=== PATIENT | male | born 1965 | race Hispanic/Latino ===

== ENCOUNTER 2018-10-16 16:29 | Emergency (ER) | payer SELFPAY | END 2018-10-16 17:40 | disposition home or self-care (01) | LOC: ERS 16:29 | DX: K04.7 Periapical abscess without sinus (principal) | CPT/HCPCS: 99283 ==

== ENCOUNTER 2019-02-28 07:08 | Inpatient (IN) | payer OTHER, SELFPAY ==
[2019-02-28] MEDS ORDERED: Ondansetron PF 4 MG/2 ML Vial ONE ×2 (07:40→11:51)
[2019-02-28] MEDS ORDERED: Morphine 4 MG/ML VIAL ONE ×2 (07:40→08:25)
[2019-02-28 07:47] LABS: #Eosinphils 0.1 thou/uL (0.0-0.7); #Monocytes 1.3 thou/uL (0.11-0.59); #Neutrophils 11.7 thou/uL (1.40-6.50); %Basophils 0.3 % (0.0-1.0); %Eosinophils 0.4 % (0.0-10.0); %Lymphocytes 6.8 % (21.0-51.0); %Monocytes 9.3 % (0.0-10.0); %Neutrophils 83.3 % (42.0-75.0); Mean Corpuscular HGB CONC 34.7 g/dL (32.0-36.0); Mean Corpuscular Hemoglobin 33.2 pg (27.0-31.0); Mean Corpuscular Volume 95.5 fL (78.0-98.0); Mean Platelet Volume 7.3 fL (7.4-10.4); Platelet Count 164 thou/uL (130-400); RBC Distribution Width 11.6 % (11.5-14.5); Red Blood Cell (RBC) Count 5.72 mill/uL (4.70-6.10); White Blood Cell (WBC) Count 14.1 thou/uL (4.8-10.8)
[2019-02-28 07:56] LABS: INR-International Normal Ratio 1.1; PTT 32.4 SEC (22.9-36.1); Prothrombin Time 14.3 SEC (12.0-14.7)
[2019-02-28 08:09] LABS: ALT (SGPT) 54 U/L (8-55); AST (SGOT) 23 U/L (5-34); Albumin 4.5 g/dL (3.5-5.0); Alkaline Phosphatase 86 U/L (40-150); Anion Gap 17 mmol/L (10-20); BUN (Urea Nitrogen) 15 mg/dL (8.4-25.7); Bilirubin, Total 3.5 mg/dL (0.2-1.2); Calc. Creatinine Clearance 0 mL/min (70-130); Calcium 9.7 mg/dL (7.8-10.44); Carbon Dioxide 23 mmol/L (22-29); Chloride 88 mmol/L (98-107); Estimated GFR-MDRD 56; Globulin 3.7 g/dL (2.4-3.5); Glucose 197 mg/dL (70-105); Lipase 33 U/L (8-78); Potassium 4.2 mmol/L (3.5-5.1); Protein, Total 8.2 g/dL (6.0-8.3); Sodium 124 mmol/L (136-145)
--- NOTE | 2019-02-28 08:20 | CT ---
CT ABDOMEN AND PELVIS WITH IV CONTRAST: Date: 02/28/19 PROVIDED CLINICAL HISTORY: Abdominal pain. FINDINGS: Visualized lung bases are free of significant opacity. The liver, spleen, pancreas, kidneys, and adrenal glands demonstrate an unremarkable CT appearance. There is a dilated appendix with mucosal enhancement and appendicolith with advanced surrounding infl ammatory fat stranding compatible with changes of acute appendicitis. There is no evidence for a foca l fluid collection or extraluminal gas. There is a right inguinal hernia containing predominantly fat. A small, circumscribed fluid density s tructure may reflect fluid extension through a patent processus vaginalis. Small, fat-containing left inguinal hernia is also seen. There is a nonspecific, somewhat thickened appearance to the urinary b ladder wall, incompletely distended. There is no evidence for bowel obstruction, free intraperitoneal fluid, or free intraperitoneal air. The regional major vascular structures appear unremarkable with the exception of scattered vascular c alcification. The osseous structures demonstrate no concerning lytic or blastic lesions. IMPRESSION: 1. Findings compatible with acute appendicitis. The degree of fat stranding suggests the possibility of a ruptured appendicitis. 2. Right greater than left inguinal hernias as above. 3. Apparent mural thickening involving the urinary bladder. Correlate with concerns for cystitis. 4. Other findings as above. POS: OFF
[2019-02-28] MEDS ORDERED: Piperacillin/Tazobactam 4.5 GM VIAL ONE (08:25)
[2019-02-28 08:38] LABS: Clarity Hazy (Clear)
[2019-02-28 08:39] LABS: Bilirubin Unable to Interpret (Negative); Blood, Urine Unable to Interpret (Negative); Glucose, Urine (Dipstick) Unable to Interpret mg/dL (Negative); Leukocyte Unable to Interpret Leu/uL (Negative); Nitrite Unable to Interpret (Negative); Urobilinogen UNABLE TO INTERPRET mg/dL (Less than 2)
[2019-02-28 08:47] LABS: Protein, Urine (Dipstick) Trace mg/dL (Neg-Trace)
[2019-02-28 08:48] LABS: Squamous Epithelial 0-3 HPF (0-3); WBC/HPF 0-3 HPF (0-3)
[2019-02-28 08:49] LABS: Bacteria/HPF None Seen HPF (None Seen)
[2019-02-28] MEDS ORDERED: Fentanyl 100 MCG/2 ML VIAL ONE ×3 (09:34→19:33)
[2019-02-28] MEDS ORDERED: Ketorolac Tromethamine 30 MG/ML VIAL ONE (10:03)
--- NOTE | 2019-02-28 10:21 | HP ---
HISTORY OF PRESENT ILLNESS: Leonides Hensley is a 53-year-old male patient, who I have known since I have been taking care of his , who has recently undergone a colon resection. The patient presents with 2 days of right lower quadrant pain, anorexia, nausea without vomiting. He had fever today up to 101 degrees. He is seen in the emergency room, underwent a CAT scan demonstrating findings consistent with appendicitis. His white count is elevated. He is hemoconcentrated. ALLERGIES: NONE. TOBACCO: None. ALCOHOL: 6 packs a day. MEDICATIONS: At home, none. PAST SURGICAL HISTORY: Noncontributory. PAST MEDICAL HISTORY: Noncontributory. REVIEW OF SYSTEMS: Ten-point noncontributory. PHYSICAL EXAMINATION: VITAL SIGNS: 100.4 degrees. HEAD, EARS, EYES, NOSE, AND THROAT: Unremarkable. LUNGS: Clear to auscultation. CARDIAC: Regular rate and rhythm without murmur or gallop. ABDOMEN: Soft, tenderness in his right lower quadrant with guarding and rebound. Positive Rovsing sign. EXTREMITIES: Unremarkable. LABORATORY DATA: White count 14, hemoglobin 19. Sodium 124, potassium 4.2, BUN 15, creatinine 1.33. ASSESSMENT/PLAN: 1. Acute appendicitis. Recommend laparoscopic video appendectomy. He is likely need to be admitted postoperative for intravenous antibiotics with his preoperative fever. He understands risks of infection, bleeding, visceral injury, possible open procedure, and consents. 2. Alcohol abuse. Job ID: [id number]
[2019-02-28] MEDS ORDERED: Lidocaine 1% PF 5 ML VIAL ONE (11:51)
[2019-02-28] MEDS ORDERED: PROPOFOL 200 MG/20 ML VIAL ONE (11:51)
[2019-02-28] MEDS ORDERED: PHENYLEPHRINE-NS 100 MCG/ML 10 ML SYRINGE ONE (11:51)
[2019-02-28] MEDS ORDERED: Rocuronium Bromide 10 MG/ML (10ML VIAL) ONE (11:51)
[2019-02-28] MEDS ORDERED: ISOVUE-370 76%-LOCM 1 ML ONE (12:07)
[2019-02-28] MEDS ORDERED: Bupivacaine/Epinephrine 0.25% 30 ML VIAL ONE (12:15)
[2019-02-28] MEDS ORDERED: Fentanyl 250 MCG/5 ML VIAL ONE (12:31)
[2019-02-28] MEDS ORDERED: hydrALAZINE 20 MG/ML VIAL SLOW IVP PRN (14:57)
[2019-02-28] MEDS ORDERED: Lorazepam 2 MG/ML VIAL SLOW IVP PRN (14:57)
[2019-02-28] MEDS ORDERED: Ondansetron PF 4 MG/2 ML Vial IVP PRN (14:57)
[2019-02-28] MEDS ORDERED: Ondansetron ODT 4 MG TAB PO PRN (14:57)
[2019-02-28] MEDS ORDERED: Sodium Chloride 0.9% 1,000 ML IV SCH (18:30)
[2019-02-28] MEDS ORDERED: Morphine 2 MG/ML SYRINGE ONE (20:56)
[2019-02-28] MEDS: Piperacillin/Tazobactam 4.5 GM in Sodium Chloride 0.9% 100 ML IVPB SCH ×2 (21:52→23:45)
[2019-02-28] MEDS: Enoxaparin Sodium 40 MG/0.4 ML SYRINGE SC SCH (21:56)
[2019-02-28] MEDS: Morphine 4 MG/ML VIAL SLOW IVP PRN ×2 (21:57→23:45)
[2019-02-28] MEDS: Sodium Chloride 0.9% 1,000 ML IV SCH (21:58)
--- NOTE | 2019-02-28 22:04 | OP ---
DATE OF PROCEDURE: 02/28/2019 PREOPERATIVE DIAGNOSIS: Acute appendicitis. POSTOPERATIVE DIAGNOSES: Acute appendicitis with peritonitis, gangrenous appendix. PROCEDURES PERFORMED: Laparoscopic video appendectomy, #19 gold GALA drain, abdominal washout, 5 L of fluid. ANESTHESIA: General. DESCRIPTION OF PROCEDURE: The patient was taken to the operating room, where under general anesthesia, abdomen was clipped of hair, prepared with ChloraPrep and draped in routine fashion. Feliz catheter placed at the beginning of the incision, and removed at the end. Local anesthetic, 0.5% Marcaine with epinephrine was infiltrated in the skin and subcutaneous tissue about each port site. Infraumbilical incision was made. Pneumoperitoneum to 15 mmHg was obtained with a Veress needle and replaced with a 5 port and laparoscope inserted. A suprapubic incision was made and a 12 port placed. Bilateral subcostal incision was made and a 5 port placed. There was purulent fluid in the pelvis and right gutter. The appendix was acutely inflamed, gangrenous. It was dissected free. It was walled off with purulent material around it. The appendix was dissected free using the LigaSure to mobilize the mesoappendix. Stump of the appendix was identified and stapled. Appendectomy performed with a DIAN blue load stapler. Stapled cecal stump was hemostatic and secured. Appendix was placed in the Endobag and removed, submitted to Pathology. Good hemostasis noted. The total bag of irrigation fluid, 5 L irrigated, irrigant evacuated. Hemostasis noted. Suprapubic fascia had been approximated with 0 Vicryl suture. Infraumbilical access port was bleeding. Thus, a [id number] suture of 0 Vicryl placed with a GraNee needle. A 19 gold GALA drain placed in the right gutter and pelvis, secured with 3-0 nylon suture. OpSite and Mastisol applied. Irrigant and pneumoperitoneum evacuated. Hemostasis noted. All skin incisions were approximated with subdural 4-0 Monocryl and [place] glue applied. The patient tolerated the procedure well. Job ID: [id number]
[2019-03-01 00:30] VITALS: BMI 31.5
[2019-03-01] MEDS: Piperacillin/Tazobactam 4.5 GM in Sodium Chloride 0.9% 100 ML IVPB SCH ×4 (05:49→23:25)
[2019-03-01] MEDS: Sodium Chloride 0.9% 1,000 ML IV SCH ×4 (05:49→19:26)
[2019-03-01] MEDS: Morphine 2 MG/ML SYRINGE SLOW IVP PRN ×2 (05:51→12:07)
[2019-03-01 06:28] LABS: Anion Gap 10 mmol/L (10-20); BUN (Urea Nitrogen) 14 mg/dL (8.4-25.7); Calc. Creatinine Clearance 102 mL/min (70-130); Carbon Dioxide 25 mmol/L (22-29); Chloride 101 mmol/L (98-107); Estimated GFR-MDRD 65; Glucose 113 mg/dL (70-105); Potassium 4.4 mmol/L (3.5-5.1); Sodium 132 mmol/L (136-145)
[2019-03-01 06:42] LABS: #Lymphocytes 0.8 thou/uL (1.20-3.40); #Monocytes 0.6 thou/uL (0.11-0.59); #Neutrophils 6.1 thou/uL (1.40-6.50); %Basophils 0.2 % (0.0-1.0); %Eosinophils 0.6 % (0.0-10.0); %Monocytes 7.8 % (0.0-10.0); %Neutrophils 80.3 % (42.0-75.0); Mean Corpuscular HGB CONC 34.7 g/dL (32.0-36.0); Mean Corpuscular Hemoglobin 34.1 pg (27.0-31.0); Mean Corpuscular Volume 98.3 fL (78.0-98.0); RBC Distribution Width 11.4 % (11.5-14.5); Red Blood Cell (RBC) Count 4.12 mill/uL (4.70-6.10); White Blood Cell (WBC) Count 7.5 thou/uL (4.8-10.8)
[2019-03-01 07:03] LABS: Mean Platelet Volume 6.9 fL (7.4-10.4); Platelet Count 119 thou/uL (130-400); Platelet Morphology Comment Appears Decreased
[2019-03-01] MEDS: Pantoprazole 40 MG VIAL IVP SCH (07:56)
[2019-03-01] MEDS: Morphine 4 MG/ML VIAL SLOW IVP PRN ×2 (17:48→21:32)
--- NOTE | 2019-03-01 18:15 | PRG ---
DATE OF SERVICE: 03/01/2019 SUBJECTIVE: Leonides Hensley is doing well today. He is not having nausea or vomiting. He is tolerating his liquids and happy with that. OBJECTIVE: VITAL SIGNS: Temperature 98 degrees, heart rate 90, blood pressure 135/76. LUNGS: Clear to auscultation. CARDIAC: Regular rate and rhythm without murmur or gallop. ABDOMEN: Slightly protuberant, distended, tympanitic. Decreased bowel sounds. Well-healed surgical wounds. EXTREMITIES: Unremarkable. LABORATORY DATA: Govind-Nazario drain has serosanguineous output. This morning, his white count is 7, hemoglobin 14. Basic metabolic profile normal. Sodium up to 132. ASSESSMENT AND PLAN: 1. Ruptured appendicitis with peritonitis and ileus. Continue liquids slowly. Do not advance diet at this time. Await better GI function. 2. Alcoholism. Begin Serax. 3. Continue Govind-Nazario drain. Job ID: [id number]
[2019-03-01] MEDS: Enoxaparin Sodium 40 MG/0.4 ML SYRINGE SC SCH (21:31)
[2019-03-01] MEDS: Oxazepam 10 MG CAP PO SCH (21:31)
[2019-03-02] MEDS: Morphine 4 MG/ML VIAL SLOW IVP PRN ×2 (02:32→06:09)
[2019-03-02] MEDS: Sodium Chloride 0.9% 1,000 ML IV SCH ×3 (02:35→17:26)
[2019-03-02 05:37] LABS: #Eosinphils 0.2 thou/uL (0.0-0.7); #Lymphocytes 0.6 thou/uL (1.20-3.40); #Monocytes 0.7 thou/uL (0.11-0.59); #Neutrophils 6.5 thou/uL (1.40-6.50); %Basophils 0.2 % (0.0-1.0); %Eosinophils 2.6 % (0.0-10.0); %Lymphocytes 7.5 % (21.0-51.0); %Monocytes 8.7 % (0.0-10.0); %Neutrophils 81.1 % (42.0-75.0); Hemoglobin 13.1 g/dL (14.0-18.0); Mean Corpuscular HGB CONC 33.5 g/dL (32.0-36.0); Mean Corpuscular Hemoglobin 32.9 pg (27.0-31.0); Mean Corpuscular Volume 98.2 fL (78.0-98.0); Mean Platelet Volume 7.2 fL (7.4-10.4); Platelet Count 136 thou/uL (130-400); RBC Distribution Width 11.1 % (11.5-14.5); Red Blood Cell (RBC) Count 3.98 mill/uL (4.70-6.10)
[2019-03-02 05:58] LABS: Anion Gap 10 mmol/L (10-20); BUN (Urea Nitrogen) 12 mg/dL (8.4-25.7); Calc. Creatinine Clearance 125 mL/min (70-130); Calcium 8.4 mg/dL (7.8-10.44); Carbon Dioxide 24 mmol/L (22-29); Chloride 101 mmol/L (98-107); Estimated GFR-MDRD 83; Glucose 113 mg/dL (70-105); Potassium 3.9 mmol/L (3.5-5.1); Sodium 131 mmol/L (136-145)
[2019-03-02] MEDS: Piperacillin/Tazobactam 4.5 GM in Sodium Chloride 0.9% 100 ML IVPB SCH ×4 (06:08→23:34)
[2019-03-02] MEDS: Oxazepam 10 MG CAP PO SCH ×3 (10:15→21:00)
[2019-03-02] MEDS: Pantoprazole 40 MG VIAL IVP SCH (10:16)
[2019-03-02] MEDS: Morphine 2 MG/ML SYRINGE SLOW IVP PRN ×2 (10:28→16:00)
[2019-03-02] MEDS ORDERED: Ibuprofen 600 MG TAB PO PRN (16:24)
[2019-03-02] MEDS ORDERED: traMADol HCl 50 MG TAB PO PRN ×2 (16:24)
--- NOTE | 2019-03-02 16:44 | PRG ---
DATE OF SERVICE: 03/02/2019 SUBJECTIVE: Mr. Lenoides Hensley is doing well today. He has not had any nausea or vomiting. He has passed some flatus, but no stools. His abdomen is still bloated and distended. He is tolerating liquids, taking sparingly. OBJECTIVE: VITAL SIGNS: Temperature 99.7 degrees, heart rate 85, and blood pressure 138/78. LUNGS: Clear to auscultation. No wheezing. CARDIAC: Regular rate and rhythm. ABDOMEN: Soft, distended, tympanitic. Laparoscopic wounds are well healed. Drainage is serosanguineous, 60 mL in the last 24 hours. LABORATORY DATA: White count is 8 and hemoglobin 13. Basic metabolic profile is normal. Sodium 131. ASSESSMENT AND PLAN: Perforated appendicitis, gangrenous with peritonitis. He still has resolving ileus. He has a few bowel sounds. He is passing flatus. He has not had any nausea or vomiting. He is happy with his clear liquids and we will leave him there until his abdomen decompresses and tympany improves. We hopefully can advance his diet in the morning. Dr. Niño is covering for the next few days. We would plan on him going home with Augmentin for 7 days. He is on Serax for alcohol withdrawal precautions. We will start multivitamins and thiamine daily. Job ID: [id number]
[2019-03-02] MEDS ORDERED: Thiamine HCl 200 MG/2 ML VIAL SLOW IVP SCH (17:00)
[2019-03-02] MEDS: Acetaminophen 500 MG TAB PO PRN (21:00)
[2019-03-02] MEDS: Enoxaparin Sodium 40 MG/0.4 ML SYRINGE SC SCH (21:00)
[2019-03-03] MEDS: Piperacillin/Tazobactam 4.5 GM in Sodium Chloride 0.9% 100 ML IVPB SCH ×2 (05:39→12:18)
[2019-03-03] MEDS: Acetaminophen 500 MG TAB PO PRN ×2 (05:39→11:12)
[2019-03-03 08:04] VITALS: BP 136/79; TEMP 98.3
[2019-03-03] MEDS ORDERED: Polyethylene Glycol 3350 17 GM Packet PO SCH (09:00)
[2019-03-03] MEDS ORDERED: Multivit, Chewable SF 1 TAB PO SCH (09:00)
[2019-03-03] MEDS: Pantoprazole 40 MG VIAL IVP SCH (10:01)
[2019-03-03] MEDS: Oxazepam 10 MG CAP PO SCH (10:14)
--- NOTE | 2019-03-03 12:14 | PQF ---
SUSANNAH GUERRA RICHARD D MD [id number] [facility] A- [id number] CLINICAL DOCUMENTATION IMPROVEMENT CLARIFICATION FORM: ICD-10 Updated PLEASE DO AN ADDENDUM TO THE PROGRESS NOTE WITH ANY DOCUMENTATION UPDATES OR ADDITIONS AND CARRY THROUGH TO DC SUMMARY. THANK YOU. DATE: 03-02-19 ATTN: DR. PEDRO LUIS SHANKS Please exercise your independent, professional judgment in responding to the clarification form. Clinical indicators are provided on the bottom of this form for your review Please check appropriate box(s): [ ] Acute Renal Failure (ARF) / Acute Kidney Injury (JENNIFER) [ ] Insignificant Lab Values [ ] Other diagnosis [ ] Unable to determine In addition, please specify: Present on Admission (POA): [ ] Yes [ ] No [ ] Unable to determine National Kidney Foundation Guidelines for CKD Staging Stage I Kidney damage with normal or increased GFR GFR > 90 Stage II Kidney damage with mildly decreased GFR GFR 60-89 Stage III Kidney damage with moderately decreased GFR GFR 30-59 Stage IV Kidney damage with severely decreased GFR GFR 16-29 Stage V Kidney failure GFR <15 ESRD End Stage Renal Disease On dialysis Acute Renal Failure/Acute Kidney Failure defined as: Increases in SCr by (>) 0.3 mg/dl within 48 hours OR- Increases in SCr by (>) 1.5 times baseline, known or presumed to have occurred within the prior 7 days OR- Urine volume < 0.5 ml/kg/hour for 6 hours (KDIGO supplement 2012 for RIFLE/ELHAM criteria) For continuity of documentation, please document condition throughout progress notes and discharge summary. Thank You. CLINICAL INDICATORS - SIGNS / SYMPTOMS / LABS: GFR: 02-28-19: 56 03-01-19: 65 03-02-19: 83 CREATININE: 02-28-19: 1.33 03-01-19: 1.16 03-02-19: 0.94 BUN: 02-28-19: 15 03-01-19: 14 03-02-19: 12 H&P: 2 DAYS OF RLQ PAIN, ANOREXIA, NAUSEA W/O VOMITING, FEVER TODAY UP TO 101 RISK FACTORS: ER: DIARRHEA AND CHILLS H&P: 2 DAYS OF RLQ PAIN, ANOREXIA, NAUSEA W/O VOMITING, FEVER TODAY UP TO 101 , ALCOHOL ABUSE TREATMENTS: ER: LR IV, NS IV THANK YOU, JAYY (This form is maintained as a part of the permanent medical record) 2015 [employer]. All Rights Reserved CHIKIS [email or web address] Office: [phone] [facility] CENTERMelani
[2019-03-03] MEDS: Sodium Chloride 0.9% 1,000 ML IV SCH (14:01)
== END 2019-03-03 15:00 | disposition home or self-care (01) | DRG 339 ==
LOC: ERS 07:08 → SURG A 14:57
PROVIDERS: ADMIT Specialist; ATTEND Specialist
PROC: 0DTJ4ZZ Resection of Appendix, Percutaneous Endoscopic Approach (ICD-10-PCS; principal; 2019-02-28)
DX: K35.32 Acute appendicitis with perforation, localized peritonitis, and gangrene, without abscess (principal); K56.7 Ileus, unspecified; K35.31 Acute appendicitis with localized peritonitis and gangrene, without perforation; F10.20 Alcohol dependence, uncomplicated
CPT/HCPCS: 36415; 36416; 74177; 80048; 80053; 81003; 81015; 83690; 85025; 85610; 85730; 88304; 93005; 96361; 96365; 96375; 96376; C9113; J0131; J1650; J1885; J2001; J2270; J2405; J2543; J2704; J3010; J3411; J3490; Q9966